=== PATIENT | female | born 1965 | race Two or more races ===

== ENCOUNTER 2020-06-09 06:10 | Emergency (ER) | payer MEDICAID ==
[~2020-06-09] VITALS: Ht 152.4 cm; Wt 55.0 kg
[2020-06-09] MEDS ORDERED: PRED5 PO (06:33)
[2020-06-09 08:07] VITALS: BP 121/78
[2020-06-09 08:15] LABS: COVID AG,FIA SOURCE NASOPHARYNGEAL
== END 2020-06-09 08:09 | disposition home or self-care (01) ==
LOC: EMS 06:11
DX: R05 Cough (principal); R06.02 Shortness of breath; R19.7 Diarrhea, unspecified; Z20.828 Contact with and (suspected) exposure to other viral communicable diseases
CPT/HCPCS: 71045; 87426; 99284; C9803